=== PATIENT | male | born 1950 | race Caucasian/White ===

== ENCOUNTER → 2018-01-14 | Outpatient (CLI) | payer OTHER | LOC: FIMAGING 10:10 | PROVIDERS: ATTEND Internal Medicine | DX: M53.82 Other specified dorsopathies, cervical region (principal); M48.02 Spinal stenosis, cervical region; M47.892 Other spondylosis, cervical region; M50.821 Other cervical disc disorders at C4-C5 level; M51.84 Other intervertebral disc disorders, thoracic region; M53.84 Other specified dorsopathies, thoracic region; M53.87 Other specified dorsopathies, lumbosacral region; M48.061 Spinal stenosis, lumbar region without neurogenic claudication; E34.9 Endocrine disorder, unspecified; Z87.81 Personal history of (healed) traumatic fracture ==

== ENCOUNTER → 2018-01-19 | Outpatient (CLI) | payer OTHER ==
[~2018-01-19] MED LIST: GADOBUTROL 10 ML VIAL IVP ONE
== END ==
LOC: FIMAGING 17:49
PROVIDERS: ATTEND Internal Medicine
DX: M51.36 Other intervertebral disc degeneration, lumbar region (principal); M48.061 Spinal stenosis, lumbar region without neurogenic claudication; M46.94 Unspecified inflammatory spondylopathy, thoracic region; M51.37 Other intervertebral disc degeneration, lumbosacral region
CPT/HCPCS: 72158; A9585